=== PATIENT | female | born 1960 | race Asian ===

== ENCOUNTER 2022-02-01 16:35 | Emergency (ER) | payer OTHER ==
[2022-02-01 17:32] VITALS: BP 123/68; PULSE 73; RESP 19; TEMP 97.8; BMI 29.4
== END 2022-02-01 23:07 | disposition left against medical advice (07) ==
LOC: JER 16:35
DX: R10.11 Right upper quadrant pain (principal)
CPT/HCPCS: 93005; 93010; 99281-25

== ENCOUNTER 2022-04-27 18:20 | Emergency (ER) | payer OTHER ==
[2022-04-27 18:41] VITALS: BP 127/55; PULSE 100; RESP 18; TEMP 98; BMI 29.2
[2022-04-27] MEDS ORDERED: methylPREDNISolone NA SUCC 125 MG/2 ML VIAL IVPUSH ONE (19:28)
[2022-04-27] MEDS ORDERED: SODIUM CHLORIDE 1,000 ML IV ONE (19:28)
[2022-04-27] MEDS ORDERED: ALBUTEROL SO4 2.5/IPRATROPIUM 0.5 INH SOL 3 ML VIAL.NEB. NEB ONE (19:34)
[2022-04-27] MEDS ORDERED: methylPREDNISolone NA SUCC 125 MG/2 ML VIAL ONE (19:34)
[2022-04-27] MEDS: ALBUTEROL SO4 2.5/IPRATROPIUM 0.5 INH SOL 3 ML VIAL.NEB. NEB SCH ×3 (19:38→20:14)
[2022-04-27] MEDS ORDERED: predniSONE 20 MG TABLET (UD) PO ONE (19:39)
[2022-04-27] MEDS ORDERED: predniSONE 20 MG TABLET (UD) ONE (19:43)
[2022-04-27] MEDS ORDERED: AZITHROMYCIN 250 MG TABLET ONE (20:56)
[2022-04-27] MEDS ORDERED: AZITHROMYCIN 500 MG TABLET PO ONE (21:01)
== END 2022-04-27 21:05 | disposition home or self-care (01) ==
LOC: FER 18:20
PROC: 3E0F7GC Introduction of Other Therapeutic Substance into Respiratory Tract, Via Natural or Artificial Opening (ICD-10-PCS; principal; 2022-04-27)
DX: J18.9 Pneumonia, unspecified organism (principal); J45.901 Unspecified asthma with (acute) exacerbation
CPT/HCPCS: 0241U-QW; 71046-TC-FY; 94640; 99285-25